=== PATIENT | male | born 1950 | race Caucasian/White ===

== ENCOUNTER 2020-07-05 07:44 | Day surgery (SDC) | payer BC ==
[~2020-07-05 07:44] MED LIST: Midazolam 1 MG/ML 2 ML SDV ONE; Propofol 200 MG/20 ML SDV ONE; fentaNYL 100 MCG/2 ML SDV ONE
[2020-07-05] MEDS ORDERED: Sodium Chloride 0.9% 1,000 ML IV SCH (08:30)
[2020-07-05] MEDS ORDERED: Propofol 200 MG/20 ML SDV ONE (11:34)
[2020-07-05] MEDS ORDERED: Atropine 0.4 MG/ML SDV ONE (11:35)
[2020-07-05 12:53] VITALS: BP 135/73; PULSE 56
--- NOTE | 2020-07-12 12:54 | OR ---
DATE OF PROCEDURE: 07/05/2020 SURGEON: Arvind Mcfarlane MD PREOPERATIVE DIAGNOSIS: Indications for screening colonoscopy. POSTOPERATIVE DIAGNOSES: 1. Left colonic diverticulosis. 2. Marked bradycardia on passage of the scope proximal to the distal transverse colon, requiring early termination of procedure. OPERATIVE PROCEDURE: Flexible colonoscopy to the level of the transverse colon. INDICATION FOR PROCEDURE: This is a 70-year-old male, presenting with indications for screening colonoscopy. He does have a family history of mother having had a colon carcinoma. The plan is to do colonoscopy with biopsies and/or polypectomies. Potential risks including bleeding and perforation were discussed, and the patient wishes to proceed. DETAILS OF PROCEDURE: The patient was taken to the operating room and placed in a left lateral decubitus position. IV sedation was administered after which the initial digital rectal exam was performed and was unremarkable. Scope was then passed into the rectum with retroflexion revealing uncomplicated hemorrhoidal columns. Scope was then passed to the level of the proximal transverse colon. At that point, further attempts to move the scope more medially resulted in marked bradycardia. Initially, the entire screen had an absence of any QRSs. The pressure on the scope was then withdrawn. The rhythm then returned to baseline. The patient was given some atropine, and following this, did further attempts. Once again, the patient developed marked bradycardia with the rate dropping down to around 20 beats per minute. Given this, the decision was made to terminate the procedure at that level. Scope was then withdrawn. The patient was noted to have some left colonic diverticulosis, which was otherwise unremarkable and the prep was fairly good. There was only a small liquid stool present otherwise no areas of colitis and no polyps or other signs of neoplasia and the procedure ws then concluded. Recommendation would be to proceed with a Cologuard type test in approximately some time in the next 6 months to a year. If this is positive, the most likely best step would be to set him up for a virtual colonoscopy, i.e., a CT scan type colonoscopy and if that shows positive, then further decision-making in terms of how best to diagnose and/or treat anything that might be seen on the virtual colonoscopy undertaken. Arvind Mcfarlane MD /[id number]
== END 2020-07-05 13:15 | disposition home or self-care (01) ==
LOC: JP.SDS 07:44
PROVIDERS: ATTEND Surgery
DX: Z12.11 Encounter for screening for malignant neoplasm of colon (principal); K57.30 Diverticulosis of large intestine without perforation or abscess without bleeding; I10 Essential (primary) hypertension; J45.909 Unspecified asthma, uncomplicated; E11.9 Type 2 diabetes mellitus without complications; Z80.0 Family history of malignant neoplasm of digestive organs; Z91.041 Radiographic dye allergy status
CPT/HCPCS: J0461; J2250; J2704; J3010; J7030